=== PATIENT | female | born 1995 | race Caucasian/White ===

== ENCOUNTER 2017-06-26 11:14 | Emergency (ER) | payer OTHER ==
[2017-06-26 11:25] VITALS: BP 144/73; PULSE 78; TEMP 98.1; BMI 27.1
--- NOTE | 2017-06-26 12:48 | PDOC ---
History of Present Illness - General History Source: Patient Exam Limitations: No Limitations - History of Present Illness Initial Comments: 06/26/17 16:00 The patient is a 22 year old female, with no significant past medical history who presents to the emergency department with intermittent episodes of epigastric abdominal pain for about 6 weeks. The patient endorses epigastric bdominal pain and cramping that often comes and goes. She notes her abdominal pain is not made worse after meals. She reports also having increased urinary frequency. She notes her LMP was a year ago, and reports seeing previous OBGYN where she had a negative work up. She denies recent fevers, chills, headache or dizziness. She denies recent nausea, vomit, diarrhea or constipation. She denies recent dysuria, frequency, urgency or hematuria. She denies recent chest pain or shortness of breath. Allergies: NKA Past surgical history: None reported. Social history: Nonsmoker. Denies EtOH use and recreational drug use. <Rey Enrique - Last Filed: 06/26/17 15:59> <Meliza Pettit - Last Filed: 06/26/17 16:38> - General Chief Complaint: Pain Stated Complaint: ABD PAIN Time Seen by Provider: 06/26/17 12:34 Past History <Rey Enrique - Last Filed: 06/26/17 15:59> - Past Medical History COPD: No - Suicide/Smoking/Psychosocial Hx Smoking History: Current some day smoker Number of Cigarettes Smoked Daily: 1 Information on smoking cessation initiated: No <Meliza Pettit - Last Filed: 06/26/17 16:38> - Past Medical History Allergies/Adverse Reactions: Allergies Allergy/AdvReac Type Severity Reaction Status Date / Time Penicillins Allergy Verified 06/26/17 11:25 Review of Systems - Review of Systems Able to Perform ROS?: Yes Comments:: 06/26/17 16:00 GENERAL/CONSTITUTIONAL: No fever or chills. No weakness. HEAD, EYES, EARS, NOSE AND THROAT: No change in vision. No ear pain or discharge. No sore throat. GASTROINTESTINAL: +abdominal pain No nausea, vomiting, diarrhea or constipation. GENITOURINARY: No dysuria, frequency, or change in urination. CARDIOVASCULAR: No chest pain or shortness of breath. RESPIRATORY: No cough, wheezing, or hemoptysis. MUSCULOSKELETAL: No joint or muscle swelling or pain. No neck or back pain. SKIN: No rash NEUROLOGIC: No headache, vertigo, loss of consciousness, or change in strength/ sensation. ENDOCRINE: No increased thirst. No abnormal weight change. HEMATOLOGIC/LYMPHATIC: No anemia, easy bleeding, or history of blood clots. ALLERGIC/IMMUNOLOGIC: No hives or skin allergy. <Rey Enrique - Last Filed: 06/26/17 15:59> *Physical Exam - Vital Signs Last Vital Signs Temp Pulse Resp BP Pulse Ox 98.1 F 78 18 144/73 98 06/26/17 11:22 06/26/17 11:22 06/26/17 11:22 06/26/17 11:22 06/26/17 11:22 - Physical Exam Comments: 06/26/17 16:00 GENERAL: Awake, alert, and fully oriented, in no acute distress. Well appearing , ambulating in ED HEAD: No signs of trauma EYES: PERRLA, EOMI, sclera anicteric, conjunctiva clear ENT: Auricles normal inspection, hearing grossly normal, nares patent, oropharynx clear without exudates. Moist mucosa NECK: Normal ROM, supple, no lymphadenopathy, JVD, or masses LUNGS: Breath sounds equal, clear to auscultation bilaterally. No wheezes, and no crackles HEART: Regular rate and rhythm, normal S1 and S2, no murmurs, rubs or gallops ABDOMEN: Soft, nontender, normoactive bowel sounds. No guarding, no rebound. No masses. No CVAT EXTREMITIES: Normal range of motion, no edema. No clubbing or cyanosis. No cords , erythema, or tenderness BACK: No midline spinal tenderness in cervical/thoracic/lumbar region NEUROLOGICAL: Normal speech, cranial nerves intact, negative pronator drift, 5/ 5 strength in all 4 extremities, normal sensation to light touch in all 4 extremities, normal cerebellar exam, normal gait, normal reflexes and tone SKIN: Warm, Dry, normal turgor, no rashes or lesions noted. <Rey Enrique - Last Filed: 06/26/17 15:59> - Vital Signs Last Vital Signs Temp Pulse Resp BP Pulse Ox 98.1 F 78 18 144/73 98 06/26/17 11:22 06/26/17 11:22 06/26/17 11:22 06/26/17 11:22 06/26/17 11:22 <Meliza Pettit - Last Filed: 06/26/17 16:38> ED Treatment Course - LABORATORY CBC & Chemistry Diagram: 06/26/17 13:15 06/26/17 13:15 - ADDITIONAL ORDERS Additional order review: Laboratory Results 06/26/17 06/26/17 13:15 13:15 Sodium 141 Potassium 4.3 Chloride 105 Carbon Dioxide 26 Anion Gap 10 BUN 12 Creatinine 0.6 Creat Clearance w eGFR > 60 Random Glucose 87 Calcium 10.1 Total Bilirubin 0.3 AST 27 ALT 63 Alkaline Phosphatase 163 H Total Protein 7.9 Albumin 4.2 Lipase 151 Urine Color Yellow Urine Appearance Cloudy Urine pH 8.0 Ur Specific [place] 1.014 Urine Protein Negative Urine Glucose (UA) Negative Urine Ketones Negative Urine Blood Negative Urine Nitrite Negative Urine Bilirubin Negative Urine Urobilinogen Negative Ur Leukocyte Esterase Negative Urine HCG, Qual Negative 06/26/17 13:15 RBC 5.21 H MCV 85.1 MCHC 32.4 RDW 12.7 MPV 7.8 Neutrophils % 59.2 Lymphocytes % 31.0 Monocytes % 7.7 Eosinophils % 1.6 Basophils % 0.5 - Medications Given in the ED: ED Medications Discontinued Medications Generic Name Dose Route Start Last Admin Trade Name Jonathan PRN Reason Stop Dose Admin Al Hydroxide/Mg Hydroxide 30 ml 06/26/17 14:38 06/26/17 15:35 Mylanta Oral Suspension - PO 06/26/17 14:39 30 ml ONCE ONE Administration Famotidine/Sodium Chloride 20 mg in 50 mls @ 100 mls/hr 06/26/17 14:38 15:36 Pepcid 20 Mg Premixed Ivpb - IVPB 06/26/17 15:07 Not Given ONCE ONE Ranitidine HCl 150 mg 06/26/17 15:33 06/26/17 15:35 Zantac - PO 06/26/17 15:34 150 mg ONCE ONE Administration <Rey Enrique - Last Filed: 06/26/17 15:59> - LABORATORY CBC & Chemistry Diagram: 06/26/17 13:15 06/26/17 13:15 <Meliza Pettit - Last Filed: 06/26/17 16:38> Medical Decision Making - Medical Decision Making 06/26/17 16:33 22-year-old female presents emergency Department with 6 weeks of intermittent epigastric abdominal pain. Patient presents today due to persistence of the pain but no change in quality or severity of the pain. No dark stools, NSAID or etoh use. Vitals unremarkable. Exam is unremarkable, abdominal exam is completely benign. Blood work and urinalysis completely unremarkable. Urine test negative. Patient feels better after Pepcid and Maalox, likely gastritis. Will refer patient to a PCP as she has no primary care doctor. We'll also refer patient to [facility], she states she has not had her period in a year. Patient is clinically stable and well-appearing. I discussed the physical exam findings, ancillary test results and final diagnoses with the patient. I answered all of the patient's questions. The patient was satisfied with the care received and felt comfortable with the discharge plan and treatment plan. The patient will call their primary care physician within 24 hours to arrange follow-up and will return to the Emergency Department with any new, persistent or worsening symptoms. <Meliza Pettit - Last Filed: 06/26/17 16:38> *DC/Admit/Observation/Transfer - Attestations Scribe Attestion: 06/26/17 16:00 Documentation prepared by Rey Enrique, acting as medical consultant for Meliza Pettit MD, /DO. <Rey Enrique - Last Filed: 06/26/17 15:59> - Discharge Dispostion Admit: No - Attestations Physician Attestion: 06/26/17 16:37 I, Dr. Meliza Pettit MD, attest that this document has been prepared under my direction and personally reviewed by me in its entirety. I further attest, that it accurately reflects all work, treatment, procedures and medical decision -making performed by me. <Meliza Pettit - Last Filed: 06/26/17 16:38> Diagnosis at time of Disposition: Abdominal pain - Discharge Dispostion Disposition: HOME Condition at time of disposition: Stable - Referrals Referrals: Amita Calderon MD [Primary Care Provider] - - Patient Instructions Printed Discharge Instructions: DI for Abdominal Pain-Adult Additional Instructions: Follow-up with Dr. Lang within one week (primary care doctor). Follow up with Dr. Gaines within 1-2 weeks ([facility] doctor) Return to the emergency department if you have any new, worsening or concerning symptoms. - Post Discharge Activity
[2017-06-26 13:26] LABS: URINE APPEARANCE CLOUDY; URINE BILIRUBIN NEGATIVE (NEGATIVE); URINE BLOOD NEGATIVE (NEGATIVE); URINE COLOR YELLOW; URINE GLUCOSE (UA) NEGATIVE (NEGATIVE); URINE KETONE NEGATIVE (NEGATIVE); URINE LEUK ESTERASE NEGATIVE (NEGATIVE); URINE NITRITE NEGATIVE (NEGATIVE); URINE PROTEIN NEGATIVE (NEGATIVE); URINE UROBILINOGEN NEGATIVE mg/dL (0.2-1.0)
[2017-06-26 13:29] LABS: BASO % 0.5 % (0-2.0); EOS % 1.6 % (0-4.5); HEMATOCRIT 44.3 % (32.4-45.2); HEMOGLOBIN 14.3 GM/dL (10.7-15.3); MCH 27.5 pg (25.7-33.7); MCHC 32.4 g/dl (32.0-36.0); MEAN CELL VOLUME 85.1 fl (80-96); MEAN PLT VOLUME 7.8 fl (7.5-11.1); MONO % 7.7 % (3.8-10.2); NEUT % 59.2 % (42.8-82.8); PLATELET COUNT 306 K/MM3 (134-434); RBC 5.21 M/mm3 (3.60-5.2); RDW 12.7 % (11.6-15.6); WHITE BLOOD COUNT 8.8 K/mm3 (4.0-10.0)
[2017-06-26 13:32] LABS: HCG,QUALITATIVE URINE NEGATIVE
[2017-06-26 13:47] LABS: ALBUMIN 4.2 g/dl (3.4-5.0); ALK PHOS 163 U/L (45-117); ANION GAP 10 (8-16); BILIRUBIN,TOTAL 0.3 mg/dL (0.2-1.0); BLOOD UREA NITROGEN 12 mg/dL (7-18); CALCIUM 10.1 mg/dL (8.5-10.1); CHLORIDE 105 mmol/L (98-107); CO2 26 mmol/L (21-32); CREATININE 0.6 mg/dL (0.55-1.02); GLUCOSE,RANDOM 87 mg/dL (74-106); LIPASE 151 U/L (73-393); POTASSIUM 4.3 mmol/L (3.5-5.1); SGOT/AST 27 U/L (15-37); SGPT/ALT 63 U/L (12-78); SODIUM 141 mmol/L (136-145); TOT PROT 7.9 g/dl (6.4-8.2)
[2017-06-26] MEDS ORDERED: FAMOTIDINE 20 MG/50 ML IVPB 20 MG/50 ML MG IVPB ONE (14:38)
[2017-06-26] MEDS ORDERED: MAG HYDROX/AL HYDROX/SIMETH 30 ML UNIT-DOSE CUP PO ONE (14:38)
[2017-06-26] MEDS ORDERED: RANITIDINE HCL 150 MG TABLET (FP) PO ONE (15:33)
[2017-06-26] MEDS ORDERED: RANITIDINE HCL 150 MG TABLET (FP) ONE (15:35)
[2017-06-26] MEDS ORDERED: MAG HYDROX/AL HYDROX/SIMETH 30 ML UNIT-DOSE CUP ONE (15:35)
== END 2017-06-26 17:06 | disposition home or self-care (01) ==
LOC: JER 11:14
PROC: 3E033GC Introduction of Other Therapeutic Substance into Peripheral Vein, Percutaneous Approach (ICD-10-PCS; principal; 2017-06-26)
DX: R10.13 Epigastric pain (principal)
CPT/HCPCS: 36415; 80053; 81003; 83690; 84703; 85025; 87086; 99282-25

== ENCOUNTER 2017-08-27 12:54 | Emergency (ER) | payer OTHER ==
[2017-08-27 13:04] VITALS: BP 122/74; PULSE 88; TEMP 98.6; BMI 27.1
--- NOTE | 2017-08-27 13:51 | PDOC ---
History of Present Illness - General Chief Complaint: Chest Pain Stated Complaint: CHEST PAIN, LT ARM NUMBNESS Time Seen by Provider: 08/27/17 13:21 History Source: Patient Exam Limitations: No Limitations - History of Present Illness Initial Comments: 08/27/17 13:52 Patient is a 22-year-old female with history of scoliosis, for several months has been experiencing pain to the left arm, numbness, weakness and pain the the left chest and arm. No pain upon arrival. Describes pain as "weird sensation, numbness that comes and goes" she reports the pains only happens when standing at work for long periods of time. Denies any injury. Has not been evaluated for her scoliosis recently. Denies any current chest pain, no difficulty swallowing , no difficulty breathing. Past Medical History: Denies. Allergies: No known allergies Medications: None Family History: Non-contributory Social History: Denies smoking, alcohol use, or IVDU Review of Systems GENERAL/CONSTITUTIONAL: No fever or chills. No weakness. No weight change. HEAD, EYES, EARS, NOSE AND THROAT: No change in vision. No ear pain or discharge. No sore throat. CARDIOVASCULAR: No chest pain or shortness of breath. RESPIRATORY: No cough, wheezing, or hemoptysis. GASTROINTESTINAL: No nausea, vomiting, diarrhea or constipation. No rectal bleeding. GENITOURINARY: No dysuria, frequency, or change in urination. MUSCULOSKELETAL: [No joint or muscle swelling or pain. No neck or back pain. Left sided pain to musculature of chest and "feeling of weakness" to left arm. Good ROM , no weakness. SKIN : No rash or easy bruising. NEUROLOGIC: No headache, vertigo, loss of consciousness, or loss of sensation. PSYCHIATRIC: No depression or anxiety. ENDOCRINE: No increased thirst. No abnormal weight change. HEMATOLOGIC/LYMPHATIC: No anemia, easy bleeding, or history of blood clots. ALLERGIC/IMMUNOLOGIC: No hives or skin allergy. No latex allergy. Physical Exam: GENERAL: The patient is awake, alert, and fully oriented, in no acute distress. EYES: Pupils equal, round and reactive to light, extraocular movements intact, sclera anicteric, conjunctiva clear. ENT: Ears normal, nares patent, oropharynx clear without exudates. Moist mucous membranes. No uvula deviation NECK: Normal range of motion, supple without lymphadenopathy, JVD, or masses. LUNGS: Breath sounds equal, clear to auscultation bilaterally. No wheezes, and no crackles. HEART: Regular rate and rhythm, normal S1 and S2 without murmur, rub or gallop. ABDOMEN: Soft, nontender, normoactive bowel sounds. No guarding, no rebound. No masses. No bruising or abrasions MUSCULOSKELETAL: Normal range of motion, no edema. No clubbing or cyanosis. No cords, erythema, or tenderness. No CVA Tenderness with fist. NEUROLOGICAL: Cranial nerves II through XII grossly intact. Normal speech, normal gait. SKIN: Warm, Dry, normal turgor, no rashes or lesions noted. 1 Past History - Past Medical History Allergies/Adverse Reactions: Allergies Allergy/AdvReac Type Severity Reaction Status Date / Time Penicillins Allergy Verified 08/27/17 13:00 Home Medications: Ambulatory Orders NK [No Known Home Medication] 08/27/17 COPD: No - Immunization History Immunization Up to Date: Yes - Suicide/Smoking/Psychosocial Hx Smoking History: Never smoked Have you smoked in the past 12 months: No Number of Cigarettes Smoked Daily: 1 Information on smoking cessation initiated: No Hx Alcohol Use: No Drug/Substance Use Hx: No Substance Use Type: None *Physical Exam - Vital Signs Last Vital Signs Temp Pulse Resp BP Pulse Ox 98.6 F 88 17 122/74 100 08/27/17 13:01 08/27/17 13:01 08/27/17 13:01 08/27/17 13:01 08/27/17 13:01 Medical Decision Making - Medical Decision Making 08/27/17 14:42 A/P: Patient here for evaluation of intermittent left arm and chest pain while standing for prolonged periods at work. Patient has significant scoliosis on examination has not followed up with her doctor for this. Patient has been wearing nonsupportive flat shoes, pain originates to right mid back, radiates to the front end causes weakness intermittently to left arm. EKG was performed, normal sinus rhythm ventricular rate of 90 with an R axis of 69. Chest x-ray was performed after urine was negative, normal chest. Pain is most likely musculoskeletal from scoliosis. On examination patient with no pain or deficits noted. I have referred patient to her primary care doctor and orthopedist. More supportive shoes, if any persistent chest pain, difficulty breathing, or any other concerns return to ER *DC/Admit/Observation/Transfer Diagnosis at time of Disposition: Back pain Arm pain Qualifiers: Laterality: left Qualified Code(s): M79.602 - Pain in left arm - Discharge Dispostion Disposition: HOME Condition at time of disposition: Stable - Referrals - Patient Instructions Additional Instructions: Recommend follow-up with M.D., no heavy lifting, please wear supportive shoes when standing for prolonged periods of time Follow-up with somebody for your scoliosis, may take Motrin for pain Your EKG and chest x-ray were normal - Post Discharge Activity Forms/Work/School Notes: Back to Work
--- NOTE | 2017-08-30 10:00 | EKG ---
Test Reason : Blood Pressure : / mmHG Vent. Rate : 090 BPM Atrial Rate : 090 BPM P-R Int : 130 ms QRS Dur : 080 ms QT Int : 360 ms P-R-T Axes : 053 069 031 degrees QTc Int : 440 ms NORMAL SINUS RHYTHM NONSPECIFIC T WAVE ABNORMALITY ABNORMAL ECG NO PREVIOUS ECGS AVAILABLE Confirmed by LESLEY SARGENT MD ([id number]) on 08/30/2017 10:00:06 AM Referred By: Confirmed By:LESLEY SARGENT MD
== END 2017-08-27 15:04 | disposition home or self-care (01) ==
LOC: JERFT 12:54
DX: M79.602 Pain in left arm (principal)
CPT/HCPCS: 71046-TC-FY; 84703; 93005; 93010; 99281-25

== ENCOUNTER 2017-10-03 09:10 | Emergency (ER) | payer OTHER ==
[2017-10-03 09:16] VITALS: BP 118/70; PULSE 92; TEMP 98.3; BMI 26.2
--- NOTE | 2017-10-03 09:44 | PDOC ---
History of Present Illness - General Chief Complaint: Cold Symptoms Stated Complaint: THROAT PAIN Time Seen by Provider: 10/03/17 09:26 Past History - Past Medical History Allergies/Adverse Reactions: Allergies Allergy/AdvReac Type Severity Reaction Status Date / Time Penicillins Allergy Verified 10/03/17 09:13 Home Medications: Ambulatory Orders Fluticasone Prop 0.05% Nasal [Flonase -] 1 - 2 spray NS DAILY #1 spray.pump Ibuprofen 800 mg PO TID #30 tablet 10/03/17 Ketotifen Fumarate [Zaditor] 5 ml OP TID #100 drops 10/03/17 COPD: No DVT: No Other medical history: SCOLIOSIS - Immunization History Immunization Up to Date: Yes - Suicide/Smoking/Psychosocial Hx Smoking History: Never smoked Have you smoked in the past 12 months: No Number of Cigarettes Smoked Daily: 1 Information on smoking cessation initiated: Yes 'Breaking Loose' booklet given: 10/03/17 Hx Alcohol Use: No Drug/Substance Use Hx: No Substance Use Type: None *Physical Exam - Vital Signs Last Vital Signs Temp Pulse Resp BP Pulse Ox 98.3 F 92 H 18 118/70 100 10/03/17 09:15 10/03/17 09:15 10/03/17 09:15 10/03/17 09:15 10/03/17 09:15 *DC/Admit/Observation/Transfer Diagnosis at time of Disposition: Pharyngitis Qualifiers: Pharyngitis/tonsillitis etiology: unspecified etiology Qualified Code(s): J02.9 - Acute pharyngitis, unspecified - Discharge Dispostion Disposition: HOME Condition at time of disposition: Stable Decision to Admit order: No - Referrals Referrals: Shaun Lang MD [Staff Physician] - - Patient Instructions Printed Discharge Instructions: DI for Viral Upper Respiratory Infection -- Adult Additional Instructions: Your strep test today is negative. You most likely have a virus. Drink plenty of fluids and get plenty of rest Use the flonase twice a day to help with the ear popping. Take Motrin 800mg every 8 hours as needed for pain Use the eye drops to help with the pain and redness as directed Follow up with your primary care provider within the week Return to the ED if you have worsening of your symptoms or any new or concerning symptoms. - Post Discharge Activity Forms/Work/School Notes: Back to Work
[2017-10-03] MEDS ORDERED: IBUPROFEN 600 MG TABLET (FP) PO ONE ×2 (09:48→10:01)
== END 2017-10-03 11:35 | disposition home or self-care (01) ==
LOC: JERFT 09:10
DX: J02.9 Acute pharyngitis, unspecified (principal)
CPT/HCPCS: 87070; 87430; 99281-25

== ENCOUNTER 2017-10-24 10:39 | Emergency (ER) | payer SELFPAY ==
[2017-10-24 10:45] VITALS: BP 114/63; PULSE 86; TEMP 98; BMI 26.4
--- NOTE | 2017-10-24 11:50 | PDOC ---
History of Present Illness - General Chief Complaint: Sore Throat Stated Complaint: THROAT PAIN Time Seen by Provider: 10/24/17 10:47 History Source: Patient Exam Limitations: No Limitations - History of Present Illness Initial Comments: 10/24/17 11:48 c/o sore throat for one week neg fever neg chills pain with swallowing taking motrin as needed pt recently had URI symptoms last 2 weeks Past History - Past Medical History Allergies/Adverse Reactions: Allergies Allergy/AdvReac Type Severity Reaction Status Date / Time Penicillins Allergy Verified 10/24/17 10:42 Home Medications: Ambulatory Orders NK [No Known Home Medication] 10/16/17 COPD: No DVT: No - Immunization History Immunization Up to Date: Yes - Suicide/Smoking/Psychosocial Hx Smoking History: Never smoked Have you smoked in the past 12 months: No Number of Cigarettes Smoked Daily: 1 'Breaking Loose' booklet given: 10/03/17 Hx Alcohol Use: No Drug/Substance Use Hx: No Substance Use Type: None Review of Systems - Review of Systems Able to Perform ROS?: Yes Is the patient limited Vietnamese proficient: No Constitutional: No: Symptoms Reported HEENTM: Yes: Symptoms Reported *Physical Exam - Vital Signs Last Vital Signs Temp Pulse Resp BP Pulse Ox 98 F 86 18 114/63 97 10/24/17 10:40 10/24/17 10:40 10/24/17 10:40 10/24/17 10:40 10/24/17 10:40 - Physical Exam General Appearance: Yes: Nourished, Appropriately Dressed HEENT: positive: TMs Normal, Pharyngeal Erythema. 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, Fully Oriented, Alert, Normal Mood/ Affect, Normal Response, Motor Strength 5/5 Medical Decision Making - Medical Decision Making 10/24/17 11:50 cc: sore throat afebrile non toxic *DC/Admit/Observation/Transfer Diagnosis at time of Disposition: Pharyngitis Qualifiers: Pharyngitis/tonsillitis etiology: unspecified etiology Qualified Code(s): J02.9 - Acute pharyngitis, unspecified - Discharge Dispostion Disposition: HOME Condition at time of disposition: Good - Referrals Referrals: Hesham Fisher MD [Staff Physician] - - Patient Instructions Additional Instructions: follow with or any of the doctors at ENT call today to make appointment gargle with warm salt water 4-5 times a day throat lozengers of your choice such as cepacol may help take motrin as needed negative strep today, please make sure you see the ENT to look for any other causes of your pain - Post Discharge Activity
== END 2017-10-24 12:13 | disposition home or self-care (01) ==
LOC: JERFT 10:39
DX: J02.9 Acute pharyngitis, unspecified (principal)
CPT/HCPCS: 87070; 87430; 99281-25